=== PATIENT | male | born 1945 | race Two or more races ===

== ENCOUNTER → 2024-10-27 | Outpatient (CLI) | payer MEDICARE, SELFPAY ==
--- NOTE | 2024-10-27 10:34 | XR_ITS ---
Examination: AP pelvis 2 views TECHNIQUE: AP pelvis hips in neutral position, AP pelvis hips abduction position Date and time: October 27, 2024 1047 hours INDICATIONS: Pelvic pain beginning 4 weeks ago. FINDINGS: Prominent osteopenia. No hip fractures or dislocations No avascular necrosis. Mild bilateral hip osteoarthritis Incidental note advanced degenerative disc disease L5-S1 IMPRESSION: Mild bilateral hip osteoarthritis
== END | disposition home or self-care (01) ==
LOC: CDIM 09:59
PROVIDERS: PCP Family Medicine; Referring Provider Family Medicine; Visit Provider Family Medicine
DX: M16.0 Bilateral primary osteoarthritis of hip (principal)
CPT/HCPCS: 72170